=== PATIENT | male | born 1990 | race Caucasian/White ===

== ENCOUNTER 2019-06-22 00:26 | Emergency (ER) | payer SELFPAY ==
[~2019-06-22] VITALS: Ht 175.3 cm; Wt 111.6 kg
[2019-06-22 00:31] VITALS: Ht 175.3 cm; Wt 111.6 kg
[2019-06-22 01:34] LABS: PLATELET COUNT 228 x10^3mcL (130-400); RED CELL DISTRIBUTION WIDTH 12.9 % (11.5-14.5)
[2019-06-22 01:58] LABS: CALCIUM 7.8 mg/dL (8.5-10.1); CARBON DIOXIDE 24.2 mmol/L (21-32); CHLORIDE SERUM 106 mmol/L (98-107); CREATININE SERUM 1.2 mg/dL (0.7-1.3); GFR1 > 60 mL/min; GLUCOSE SERUM 118 mg/dL (74-106); SODIUM SERUM 140 mmol/L (136-145)
[2019-06-22 02:02] LABS: ALBUMIN 3.4 g/dL (3.4-5.0); ALKALINE PHOSPHATASE 96 U/L (46-116); ALT/SGPT 37 U/L (16-63); AST/SGOT 11 U/L (15-37); LIPASE 178 IU/L (73-393); TOTAL PROTEIN, SERUM 6.6 g/dL (6.4-8.2)
[2019-06-22 02:05] LABS: BASOPHIL % 2.5 % (0-2)
[2019-06-22 03:51] VITALS: BP 114/73
== END 2019-06-22 03:51 | disposition home or self-care (01) ==
LOC: ED 00:26
PROVIDERS: Emergency Medicine
DX: K59.00 Constipation, unspecified (principal); F17.200 Nicotine dependence, unspecified, uncomplicated; Z88.5 Allergy status to narcotic agent; Z88.8 Allergy status to other drugs, medicaments and biological substances
CPT/HCPCS: 99406; J1885; J2405; J3010; J7030